=== PATIENT | female | born 1980 | race Asian ===

== ENCOUNTER 2021-05-08 08:04 | Outpatient (CLI) | payer OTHER | END 2021-05-08 08:05 | disposition home or self-care (01) | LOC: CSHULT 08:04 | PROVIDERS: ATTEND Family Medicine | DX: O09.522 Supervision of elderly multigravida, second trimester (principal); Z3A.21 21 weeks gestation of pregnancy | CPT/HCPCS: 76805 ==

== ENCOUNTER 2021-09-01 08:48 | Outpatient (CLI) | payer OTHER ==
[2021-09-01 18:46] LABS: SARS-CoV-2 PCR by NAA Not Detected (NotDetected)
== END 2021-09-01 08:49 | disposition home or self-care (01) ==
LOC: CSHLAB 08:48
PROVIDERS: ATTEND Family Medicine
DX: Z20.822 Contact with and (suspected) exposure to COVID-19 (principal)
CPT/HCPCS: U0003; U0005

== ENCOUNTER 2021-09-05 18:00 | Inpatient (IN) | payer OTHER ==
[2021-09-05] MEDS ORDERED: HYDROcodone/Acetaminophen 5/325 mg Tablet PO PRN (18:34)
[2021-09-05] MEDS ORDERED: Ondansetron PF 4 MG/2 ML Vial IVP PRN (18:34)
[2021-09-05] MEDS ORDERED: Acetaminophen 500 MG TAB PO PRN (18:34)
[2021-09-05] MEDS ORDERED: Diphenoxylate HCl/Atropine Tablet PO PRN (18:34)
[2021-09-05] MEDS ORDERED: Lidocaine 1% (PF) 30 ML VIAL SC PRN (18:34)
[2021-09-05] MEDS ORDERED: Carboprost 250 MCG/ML AMP IM PRN (18:34)
[2021-09-05] MEDS ORDERED: hydrALAZINE 20 MG/ML VIAL SLOW IVP PRN (18:34)
[2021-09-05] MEDS ORDERED: Misoprostol 200 MCG TAB PR PRN (18:34)
[2021-09-05] MEDS ORDERED: Methylergonovine 0.2 MG/ML VIAL IM PRN (18:34)
[2021-09-05] MEDS ORDERED: Ibuprofen 800 MG TAB PO PRN (18:34)
[2021-09-05] MEDS ORDERED: Promethazine HCl 25 MG/ML VIAL IM PRN (18:34)
[2021-09-05] MEDS ORDERED: NS w/ Oxytocin 30 units 500 ML IV SCH ×2 (18:45)
[2021-09-05 19:14] VITALS: BMI 26.6
[2021-09-05 20:14] LABS: Hemoglobin 11.8 g/dL (12.0-15.5); Mean Corpuscular HGB CONC 33.7 g/dL (32.0-36.0); Mean Corpuscular Volume 83.1 fl (81.6-98.3); Mean Platelet Volume 10.1 fl (7.4-10.4); Platelet Count 235 10x3/uL (150-450); RBC Distribution Width 13.8 % (11.5-14.5); Red Blood Cell (RBC) Count 4.21 10x6/uL (3.90-5.03); White Blood Cell (WBC) Count 10.3 10x3/uL (3.5-10.5)
[2021-09-05] MEDS: Misoprostol 100 MCG TAB PO SCH (20:19)
[2021-09-05 20:44] LABS: HBSAg Index 0.12 S/CO (0-0.99); Hep B Surf Ag Non-Reactive S/CO (NonReactive); Syphilis Antibody Nonreactive (Nonreactive); Syphilis Antibody Index 0.06 S/CO (<1.00 Non-Reactive)
[2021-09-05 22:19] LABS: Glucose 82 mg/dL (70-105)
[2021-09-06] MEDS: Lactated Ringer's 1,000 ML IV SCH ×2 (01:26→11:35)
[2021-09-06] MEDS: Butorphanol Tartrate 1 MG/ML VIAL SLOW IVP PRN ×3 (10:51→14:05)
[2021-09-06] MEDS ORDERED: Promethazine HCl 25 MG/ML VIAL IM PRN (20:41)
[2021-09-06] MEDS ORDERED: HYDROcodone/Acetaminophen 5/325 mg Tablet PO PRN ×2 (20:41)
[2021-09-06] MEDS ORDERED: Lanolin Ointment 7 GM TUBE TOP PRN (20:41)
[2021-09-06] MEDS ORDERED: hydrALAZINE 20 MG/ML VIAL SLOW IVP PRN (20:41)
[2021-09-06] MEDS ORDERED: diphenhydrAMINE 25 MG CAP PO PRN (20:41)
[2021-09-06] MEDS ORDERED: Milk Of Magnesia 30 ML UDCUP PO PRN (20:41)
[2021-09-06] MEDS ORDERED: Benzocaine-Menthol 82.5 ML CAN TOP PRN (20:41)
[2021-09-06] MEDS ORDERED: Ondansetron PF 4 MG/2 ML Vial IVP PRN (20:41)
[2021-09-06] MEDS ORDERED: Boostrix 0.5 ML (Tdap) VIAL IM ONE (20:41)
[2021-09-06] MEDS ORDERED: Bisacodyl 10 MG SUPP PR PRN (20:41)
[2021-09-06] MEDS ORDERED: NS w/ Oxytocin 30 units 500 ML IV SCH (21:15)
[2021-09-06] MEDS: Misoprostol 100 MCG TAB PO SCH (21:23)
[2021-09-06] MEDS ORDERED: Docusate 100 MG CAP PO SCH (21:30)
[2021-09-06] MEDS: Ibuprofen 800 MG TAB PO SCH (22:10)
[2021-09-07] MEDS: Ibuprofen 800 MG TAB PO SCH ×2 (05:54→14:07)
[2021-09-07] MEDS: Ferrous Sulfate 325 MG TAB PO SCH ×2 (07:34→17:00)
[2021-09-07] MEDS: Docusate 100 MG CAP PO SCH ×2 (09:57→21:39)
[2021-09-07] MEDS: Prenatal Vitamin 1 TAB PO SCH (09:57)
[2021-09-08] MEDS: Ibuprofen 800 MG TAB PO SCH ×3 (04:36→13:35)
[2021-09-08 07:42] VITALS: BP 111/64; TEMP 98.4
[2021-09-08] MEDS: Ferrous Sulfate 325 MG TAB PO SCH (08:02)
[2021-09-08] MEDS: Prenatal Vitamin 1 TAB PO SCH (09:13)
[2021-09-08] MEDS: Docusate 100 MG CAP PO SCH (09:13)
== END 2021-09-08 15:45 | disposition home or self-care (01) | DRG 768 ==
LOC: CSHLD 18:21 → CSHPP 09-06 21:02
PROVIDERS: ADMIT Family Medicine; ATTEND Family Medicine
PROC: 10E0XZZ Delivery of Products of Conception, External Approach (ICD-10-PCS; principal; 2021-09-06)
PROC: 0W8NXZZ Division of Female Perineum, External Approach (ICD-10-PCS; 2021-09-06)
PROC: 10907ZC Drainage of Amniotic Fluid, Therapeutic from Products of Conception, Via Natural or Artificial Opening (ICD-10-PCS; 2021-09-06)
PROC: 3E0P7VZ Introduction of Hormone into Female Reproductive, Via Natural or Artificial Opening (ICD-10-PCS; 2021-09-06)
PROC: 3E033VJ Introduction of Other Hormone into Peripheral Vein, Percutaneous Approach (ICD-10-PCS; 2021-09-06)
PROC: 0DQR0ZZ Repair Anal Sphincter, Open Approach (ICD-10-PCS; 2021-09-06)
DX: O24.424 Gestational diabetes mellitus in childbirth, insulin controlled (principal); Z37.0 Single live birth; O70.20 Third degree perineal laceration during delivery, unspecified; Z3A.37 37 weeks gestation of pregnancy; Z79.4 Long term (current) use of insulin; Z79.899 Other long term (current) drug therapy
CPT/HCPCS: 36415; 36416; 51701; 82947; 85027; 86780; 86850; 86900; 86901; 87340; J0595; J2590; J7120

== ENCOUNTER 2021-11-02 09:24 | Outpatient (CLI) | payer OTHER | END 2021-11-02 09:25 | disposition home or self-care (01) | LOC: CSHMAMMO 09:24 | PROVIDERS: ATTEND Nurse Practitioner Women's Health | DX: Z12.31 Encounter for screening mammogram for malignant neoplasm of breast (principal) | CPT/HCPCS: 77067 ==

== ENCOUNTER 2023-02-07 15:02 | Outpatient (CLI) | payer BC, OTHER | END 2023-02-07 15:03 | disposition home or self-care (01) | LOC: CSHMAMMO 15:02 | PROVIDERS: ATTEND Nurse Practitioner Women's Health | DX: Z12.31 Encounter for screening mammogram for malignant neoplasm of breast (principal) | CPT/HCPCS: 77067 ==

== ENCOUNTER 2024-02-11 10:03 | Outpatient (CLI) | payer BC, OTHER | END 2024-02-11 10:04 | disposition home or self-care (01) | LOC: CSHMAMMO 10:03 | DX: Z12.31 Encounter for screening mammogram for malignant neoplasm of breast (principal) | CPT/HCPCS: 77063; 77067 ==